=== PATIENT | female | born 1940 | race Caucasian/White ===

== ENCOUNTER 2019-08-20 12:14 | Emergency (ER) | payer MEDICARE ==
--- NOTE | 2019-08-20 12:58 | ED ---
Complex/Multi-Sys Presentation - HPI Summary HPI Summary: Patient is an 79 y/o F presenting to the ED for a chief complaint of nausea and vomiting that began on 08/20/19. Patient states that she had one episode of vomiting with a small amount of blood that is described as an intermediate between bright and dark red in color. Patient also notes decreased appetite and fatigue. She reports having a general feeling of being unwell for the last few days. Patient denies any fever, chills, diaphoresis, erythema of eyes, sore throat, chest pain, shortness of breath, cough, abdominal pain, diarrhea, dysuria, hematuria, myalgia, edema, rash, or dizziness. She denies having any positive sick contacts. No aggravating or alleviating factors are reported. - History Of Current Complaint Chief Complaint: EDGIBleed Hx Obtained From: Patient Onset/Duration: Sudden Onset, Still Present Timing: Constant Severity Currently: Moderate Severity Initially: Moderate Aggravating Factor(s): Nothing Alleviating Factor(s): Nothing Associated Signs And Symptoms: Positive: Nausea, Vomiting. Negative: Dizziness , SOB, Cough, Chest Pain, Edema, Diarrhea, Abdominal Pain, Dysuria, Fever - Allergies/Home Medications Allergies/Adverse Reactions: Allergies Allergy/AdvReac Type Severity Reaction Status Date / Time No Known Allergies Allergy Verified 08/20/19 12:19 Home Medications: Home Medications Ondansetron ODT TAB* [Zofran 4 MG Odt TAB*] 4 mg PO Q8H PRN #10 tab.odt [Rx] PMH/Surg Hx/FS Hx/Imm Hx Previously Healthy: Yes Endocrine/Hematology History: Denies: Hx Diabetes Cardiovascular History: Reports: Other Cardiovascular Problems/Disorders - Heart murmur Denies: Hx Hypertension, Hx Pacemaker/ICD Respiratory History: Reports: Hx Sleep Apnea - ?? History: Denies: Hx Renal Disease Musculoskeletal History: Reports: Hx Arthritis - RIGHT WRIST, Other Musculoskeletal History - SLIPPED DISC IN THE PAST YEAR- RESOLVED WITH CHIROPRACTOR Sensory History: Reports: Hx Cataracts - BILATERAL, Hx Contacts or Glasses Denies: Hx Hearing Aid Opthamlomology History: Reports: Hx Cataracts - BILATERAL, Hx Contacts or Glasses Psychiatric History: Denies: Hx Panic Disorder - Surgical History Surgical History: Yes Surgery Procedure, Year, and Place: TONSILLECTOMY AGE 9. D&C AGE 29. wrist fracture age 39 Hx Anesthesia Reactions: No Infectious Disease History: No Infectious Disease History: Denies: Traveled Outside the [place] in Last 30 Days - Family History Known Family History: Negative: Diabetes - Social History Occupation: Retired Lives: With Family Alcohol Use: None Alcohol Amount: 1-2 GLASSES OF WINE DAILY Hx Substance Use: No Substance Use Type: Reports: None Hx Tobacco Use: No Smoking Status (MU): Never Smoked Tobacco Amount Used/How Often: 1 PPD X 30 YEARS Have You Smoked in the Last Year: No Review of Systems Positive: Fatigue, Other - Positive decreased appetite. Negative: Fever, Chills , Skin Diaphoresis Negative: Erythema Negative: Sore Throat Negative: Chest Pain Negative: Shortness Of Breath, Cough Positive: Vomiting - With blood, Nausea. Negative: Abdominal Pain, Diarrhea Negative: dysuria, hematuria Negative: Myalgia, Edema Negative: Rash Neurological/Mental Status: Other - Negative dizziness All Other Systems Reviewed And Are Negative: Yes Physical Exam - Summary Physical Exam Summary: Constitutional: Well-developed, Well-nourished, Alert. (-) Distressed Skin: Warm, Dry HENT: Normocephalic; Atraumatic Eyes: Conjunctiva normal Neck: Musculoskeletal ROM normal neck. (-) JVD, (-) Stridor, (-) Tracheal deviation Cardio: Rhythm regular, rate normal, Heart sounds normal; Intact distal pulses; The pedal pulses are 2+ and symmetric. Radial pulses are 2+ and symmetric. (-) Murmur Pulmonary/Chest wall: Effort normal. (-) Respiratory distress, (-) Wheezes, (-) Rales Abd: Soft, (-) tenderness, (-) Distension, (-) Guarding, (-) Rebound Musculoskeletal: (-) Edema Lymph: (-) Cervical adenopathy Neuro: Alert, Oriented x3 Psych: Mood and affect Normal Triage Information Reviewed: Yes Vital Signs On Initial Exam: Initial Vitals Temp Pulse Resp BP Pulse Ox 96.9 F 108 18 145/102 98 08/20/19 12:16 08/20/19 12:16 08/20/19 12:16 08/20/19 12:16 08/20/19 12:16 Vital Signs Reviewed: Yes Procedures - Sedation Patient Received Moderate/Deep Sedation with Procedure: No Diagnostics - Vital Signs Vital Signs Temp Pulse Resp BP Pulse Ox 04/01/20 12:16 96.9 F 108 18 145/102 98 - Laboratory Result Diagrams: 08/20/19 13:25 08/20/19 13:25 Lab Statement: Any lab studies that have been ordered have been reviewed, and results considered in the medical decision making process. - EKG 13:11 Cardiac Rate: Other Rate - 124 BPM EKG Rhythm: Atrial Fibrillation ST Segment: Normal Ectopy: None Summary of EKG Findings: EKG at 13:11 shows atrial fibrillation with 124 BPM, no STEMI. Reviewed and interpreted by Dr. Deal. 16:39 Cardiac Rate: Bradycardia - 52 BPM EKG Rhythm: Sinus Bradycardia ST Segment: Normal Ectopy: None Summary of EKG Findings: EKG at 16:39 shows sinus bradycardia with 52 BPM, RR 1154, no STEMI. Reviewed and interpreted by Dr. Deal. Re-Evaluation - Re-Evaluation First Eval Re-Evaluation Time: 15:04 Change: Improved Comment: At 15:04, patient states she feels fine. Complex Multi-Symp Course/Dx Course Of Treatment: Patient is an 79 y/o F presenting to the ED for a chief complaint of nausea and vomiting that began on 08/20/19. Patient states that she had one episode of vomiting with a small amount of blood that is described as an intermediate between bright and dark red in color. Patient also notes decreased appetite and fatigue. She reports having a general feeling of being unwell for the last few days. Patient denies any fever, chills, diaphoresis, erythema of eyes, sore throat, chest pain, shortness of breath, cough, abdominal pain, diarrhea, dysuria, hematuria, myalgia, edema, rash, or dizziness. She denies having any positive sick contacts. On exam, unremarkable findings. In the ED course, patient was given IV fluids. EKG at 13:11 shows atrial fibrillation with 124 BPM, no STEMI. EKG at 16:39 shows sinus bradycardia with 52 BPM, RR 1154, no STEMI. At 15:04, patient states she feels fine. UA shows 1+ ketones. Laboratory findings are without significant abnormality. Patient will be discharged with a diagnosis of nausea, fatigue, and atrial fibrillation with RVR. Follow up with PCP in 2-3 days. - Diagnoses Differential Diagnoses/HQI/PQRI: Other - Viral syndrome, atypical presentation of [place], UTI, electrolyte abnormality. Provider Diagnoses: Atrial fibrillation with RVR, Nausea, Fatigue - Critical Care Time Critical Care Time: 30-74 min - 35 minutes CCT Discharge ED - Sign-Out/Discharge Documenting (check all that apply): Patient Departure - Discharge - Discharge Plan Condition: Stable Disposition: HOME Prescriptions: Ondansetron ODT TAB* [Zofran 4 MG Odt TAB*] 4 mg PO Q8H PRN #10 tab.odt PRN Reason: Nausea Patient Education Materials: Fatigue (ED) Referrals: Garrison Delgado MD [Primary Care Provider] - Additional Instructions: RETURN TO THE EMERGENCY DEPARTMENT FOR CHANGING OR WORSENING SYMPTOMS. Follow up with your primary care physician in 2-3 days. - Attestation Statements Document Initiated by Scribe: Yes Documenting Scribe: Mago Eckert Provider For Whom Scribe is Documenting (Include Credential): Harpreet Deal MD Scribe Attestation: Mago Sanchez, scribed for Harpreet Deal MD on 08/20/19 at 1722. Status of Scribe Document: Ready
[2019-08-20] MEDS ORDERED: NS 0.9% 1000 ML** 1,000 ML IV ONE (13:06)
[2019-08-20 13:35] LABS: ABS Lymphocytes 0.8 10^3/ul (1.0-4.8); ABS Monocytes 0.3 10^3/ul (0-0.8); ABS Neutrophils 7.1 10^3/ul (1.5-7.7); Eosinophil % 0.1 %; Hematocrit 39 % (35-47); Hemoglobin 13.1 g/dL (12.0-16.0); Lymphocyte % 9.4 %; Mean Corpuscular HGB Conc 34 g/dL (31-36); Mean Corpuscular Hemoglobin 32 pg (27-31); Mean Corpuscular Volume 96 fL (80-97); Mean Platelet Volume 8.8 fL (7.4-10.4); Platelet Count 173 10^3/uL (150-450); Red Blood Count 4.05 10^6 /uL (3.70-4.87); Red Cell Distribution Width 13 % (10-15); White Blood Count 8.1 10^3/uL (3.5-10.8)
[2019-08-20 14:03] LABS: ALT 23 U/L (7-52); AST 24 U/L (13-39); Albumin 3.9 g/dL (3.2-5.2); Albumin/Globulin Ratio 1.5 (1-3); Alkaline Phosphatase 46 U/L (34-104); Anion Gap 6 mmol/L (2-11); BUN/Creatinine Ratio 23.2 (8-20); Blood Urea Nitrogen 16 mg/dL (6-24); C Reactive Protein < 1.00 mg/L (<8.01); CO2 Carbon Dioxide 27 mmol/L (22-32); Calcium 9.2 mg/dL (8.6-10.3); Chloride 105 mmol/L (101-111); EGFR African American 99.1 (>60); EGFR Non-African American 81.9 (>60); Globulin 2.6 g/dL (2-4); Glucose 107 mg/dL (70-100); Sodium 138 mmol/L (135-145); Total Protein 6.5 g/dL (6.4-8.9); Troponin I 0.01 ng/mL (<0.03)
[2019-08-20 14:41] LABS: Urine Appearance Clear; Urine Bilirubin Negative (Negative); Urine Blood Negative (Negative); Urine Color Straw; Urine Glucose Negative (Negative); Urine Ketones 1+ (Negative); Urine Nitrite Negative (Negative); Urine Protein Negative (Negative); Urine Specific Gravity 1.008 (1.010-1.030); Urine Urobilinogen Negative (Negative)
[2019-08-20 17:29] VITALS: BP 146/66
== END 2019-08-20 17:28 | disposition home or self-care (01) ==
LOC: ED 12:14
DX: I48.20 Chronic atrial fibrillation, unspecified (principal); R11.0 Nausea; R53.83 Other fatigue
CPT/HCPCS: 36415; 80053; 81003; 83605; 83690; 84484; 85025; 86140; 93005; 96360; 99283